=== PATIENT | male | born 1980 | race African-American/Black ===

== ENCOUNTER 2023-05-28 18:02 | Emergency (ER) | payer OTHER ==
[2023-05-28 18:11] VITALS: BP 132/83; PULSE 116; RESP 18; TEMP 98.5; BMI 25.0
[2023-05-28] MEDS ORDERED: DIPHTH,PERTUSS(ACELL),TET 0.5 ML DISP.SYRIN IM ONE ×2 (19:40→19:57)
[2023-05-28] MEDS ORDERED: levETIRAcetam 500 MG/5 ML INJECTION VIAL IVPB ONE (19:40)
[2023-05-28] MEDS: DIPHTH,PERTUSS(ACELL),TET 0.5 ML DISP.SYRIN IM ONE (19:56)
[2023-05-28] MEDS: levETIRAcetam 500 MG/5 ML INJECTION VIAL IVPB ONE (19:59)
[2023-05-28 20:08] LABS: BASO % 0.2 % (0-2.0); EOS % 3.7 % (0-4.5); HEMATOCRIT 42.7 % (35.4-49); HEMOGLOBIN 14.4 GM/dL (11.7-16.9); LYMPH % 21.5 % (8-40); MCH 28.2 pg (25.7-33.7); MCHC 33.7 g/dl (32.0-35.9); MEAN CELL VOLUME 83.6 fl (80-96); MEAN PLT VOLUME 6.6 fl (7.5-11.1); NEUT % 68.6 % (42.8-82.8); PLATELET COUNT 226 10^3/uL (134-434); RDW 13.7 % (11.9-15.9); WHITE BLOOD COUNT 7.1 K/mm3 (4.0-10.0)
[2023-05-28 20:27] LABS: CALCIUM 9.6 mg/dL (8.5-10.1)
[2023-05-28 20:29] LABS: ALBUMIN 4.2 g/dl (3.4-5.0); BLOOD UREA NITROGEN 9.6 mg/dL (7-18)
[2023-05-28 20:31] LABS: CREATININE 1.1 mg/dL (0.55-1.3)
[2023-05-28 20:34] LABS: BILIRUBIN,TOTAL 0.4 mg/dL (0.2-1); TOT PROT 7.9 g/dl (6.4-8.2)
== END 2023-05-28 20:54 | disposition home or self-care (01) ==
LOC: JER 18:02
PROC: 3E033GC Introduction of Other Therapeutic Substance into Peripheral Vein, Percutaneous Approach (ICD-10-PCS; principal; 2023-05-28)
PROC: 3E0234Z Introduction of Serum, Toxoid and Vaccine into Muscle, Percutaneous Approach (ICD-10-PCS; 2023-05-28)
DX: S00.31XA Abrasion of nose, initial encounter (principal); R55 Syncope and collapse; W07.XXXA Fall from chair, initial encounter; Y93.89 Activity, other specified; Y92.239 Unspecified place in hospital as the place of occurrence of the external cause
CPT/HCPCS: 36415; 70450-TC; 70486-TC; 72125-TC; 80053; 82962; 85025; 90715; 93005; 93010; 99285-25